=== PATIENT | female | born 1980 | race Caucasian/White ===

== ENCOUNTER 2018-06-07 10:12 | Emergency (ER) | payer SELFPAY ==
[~2018-06-07] VITALS: Ht 172.7 cm; Wt 77.7 kg
[2018-06-07 10:17] VITALS: BP 139/83
[2018-06-07] MEDS: HYDROcodone/APAP 5/325 MG 1 TAB TAB PO ONE (10:48)
[2018-06-07] MEDS: ONDANSETRON 4 MG ODT PO ONE (10:48)
[2018-06-07 12:04] VITALS: BP 129/79
== END 2018-06-07 12:04 | disposition home or self-care (01) ==
LOC: MED 10:12
DX: S39.92XA Unspecified injury of lower back, initial encounter (principal); Z88.8 Allergy status to other drugs, medicaments and biological substances; Z88.6 Allergy status to analgesic agent; W01.0XXA Fall on same level from slipping, tripping and stumbling without subsequent striking against object, initial encounter; Y93.89 Activity, other specified; Y92.89 Other specified places as the place of occurrence of the external cause; Y99.8 Other external cause status
CPT/HCPCS: 72220; 81002; 81025; 99283; Q0162